=== PATIENT | female | born 1950 | race Caucasian/White ===

== ENCOUNTER → 2022-02-07 | Outpatient (CLI) | payer MEDICARE | END | disposition home or self-care (01) | LOC: RADMN 12:01 | PROVIDERS: ATTEND Internal Medicine Gastroenterology | DX: K82.8 Other specified diseases of gallbladder (principal); R60.0 Localized edema; K76.89 Other specified diseases of liver; K80.20 Calculus of gallbladder without cholecystitis without obstruction | CPT/HCPCS: 74181 ==